=== PATIENT | female | born 1980 | race Hispanic/Latino ===

== ENCOUNTER 2025-04-12 02:40 | Emergency (ER) | payer OTHER, SELFPAY ==
[2025-04-12 02:42] VITALS: BP 144/90
[2025-04-12] MEDS: TORADOL 30 MG IM (04:27)
[2025-04-12 04:32] VITALS: BP 149/98
--- NOTE | 2025-04-12 04:43 | ED.GENMED ---
History of Present Illness
General
Chief Complaint: Back Pain
Source: patient
Exam Limitations: none
Time Seen by Provider: 04/12/25 03:18
History of Present Illness
History of Present Illness:
Note:
CHIEF COMPLAINT(S)
Lower back pain.
HISTORY OF PRESENT ILLNESS
The patient is a 45-year-old female with a history of herniated discs since 2019, presenting with lower back pain. The patient reports that the pain is primarily located in the center of the lower back and occasionally radiates around the hip area.
In the past, the patient has experienced episodes of shooting pain from the back of the head downwards, but this is not currently present. The pain is described as episodic, often aggravated by everyday activities such as picking up her pets. When
she has these acute episodes, she has to ambulate with a walker. The patient denies any recent falls or new injuries. She reports using naproxen and lidocaine patches for pain management. But this has not been working recently. She notes numbness
and tingling occasionally gabapentin has not been working. The patient works with the [employer] system and has not been recommended for surgery, with the primary management being pain control through gabapentin, which she has stopped
using due to the necessity for daily intake to be effective. There are no associated symptoms of fever, urinary incontinence, or new neurological symptoms reported. She denies any fevers or chills. She denies any hematuria or dysuria.
SOCIAL HISTORY
The patient mentioned picking up her pets, which may occasionally aggravate her back pain.
MEDICATIONS
The patient uses naproxen and lidocaine patches for pain management. Previous use of gabapentin was noted but discontinued.
PHYSICAL EXAM
General: Alert, no acute distress.
Skin: Warm, dry.
Head: Normocephalic, atraumatic.
Neck: Supple, trachea midline.
Eye Ears, nose, mouth and throat: Oral mucosa moist.
Cardiovascular: Normal peripheral perfusion, No edema.
Respiratory: Respirations are non-labored.
Gastrointestinal: Abdomen nondistended
Back: Normal range of motion but tenderness noted in the paralumbar region on palpation, particularly the left side, no midline spinal tenderness
Musculoskeletal: Normal ROM, normal strength noted 5/5 strength in bilateral lower extremities
Neurological: Alert and oriented to person, place, time, and situation, No focal neurological deficit observed.
Psychiatric: Cooperative, appropriate mood & affect.
PROBLEM LIST
Acute:
- Lower back pain with episodic flare-ups
Chronic:
- Herniated discs
PLAN
1. Administer toradol (ketorolac) injection for acute pain relief.
2. Prescribe a short course of prednisone, 40 mg once daily for 5 days, advising against the concurrent use of naproxen during this period.
3. Evaluate the need for further diagnostic imaging or follow-up if symptoms persist or worsen, MRI is not available in the emergency setting.
DIFFERENTIAL DIAGNOSIS
The Differential Diagnosis includes, in no particular order and is not limited to:
1. Lumbar herniated disc
2. Lumbar strain or sprain
3. Sciatica
4. Spinal stenosis
5. Sacroiliac joint dysfunction
6. Facet joint syndrome
7. Ankylosing spondylitis
8. Degenerative disc disease
9. Osteoarthritis of the spine
10. Piriformis syndrome
CHART REVIEW
Reviewed [facility], no prior ER physician documentation to review no hospital discharge summary to review
No external medical summary report to review
MDM/DISPOSITION
The patient is a 45-year-old female with a history of herniated discs since 2019, presenting with lower back pain. The patient reports that the pain is primarily located in the center of the lower back and occasionally radiates around the hip area.
She is able to recognize this pain is an exacerbation of her sciatica/herniated disc. Patient has no new neurologic symptoms today, she has no urinary or fecal incontinence, no red flag symptoms, no genital paresthesias, no fevers or chills. On
physical exam, she is tender to palpation paralumbar region however she has a normal gait and 5 out of 5 strength. Suspect exacerbation of her underlying herniated disc disease, did discuss limited utility of imaging. Doubt kidney stones, doubt
intra-abdominal pathology. Patient requesting IM dose of Toradol. Patient symptoms greatly improved able to walk more comfortably. Will send course of prednisone to pharmacy. Discussed follow-up with Ortho as an outpatient. Discussed tricked
return precautions. Patient stable for discharge.
Review of Systems
Review of Systems
All Other Systems: ROS reviewed and negative except as documented in HPI and ROS
Phy Exam
Physical Exam
Physical Exam:
see hpi
Course
Orders/Labs/Results
Orders:
Orders
04/12/25 04:01
Ketorolac [Toradol] 30 mg IM NOW STA
Vital Signs
Initial and Last Documented VS:
Initial Vital Signs
Temp Pulse Resp BP Pulse Ox
97.3 F 78 18 144/90 100
04/12/25 02:42 04/12/25 02:42 04/12/25 02:42 04/12/25 02:42 04/12/25 02:42
Last Documented Vital Signs
Temp Pulse Resp BP Pulse Ox
97.3 F 68 14 149/98 99
04/12/25 02:42 04/12/25 04:32 04/12/25 04:32 04/12/25 04:32 04/12/25 04:44
*Pulse Oximetry
SaO2: 99
Oxygen Mode of Delivery: Room air
Patient hypoxic: no
*Critical Care Note
Total Time (30-74mins, 75-104mins- exclusive of procedures): Not Applicable
ED Attending Note
-
Portions of this chart may have been created with voice recognition software.� Occasional wrong word or��sound alike� substitutions may have occurred due to the inherent limitations of voice recognition software.
Discharge Plan
Departure
Patient Disposition: Home (Routine Discharge)
Date of Disposition: 04/12/25
Time of Disposition: 04:42
Patient with high blood pressure during this ER visit?: Yes
Condition: Fair
Discharge Problem:
Lumbar herniated disc, Sciatica
Instructions: Low Back Pain (DC), BLOOD PRESSURE
Prescriptions:
New
prednisone 20 mg tablet
40 mg PO DAILY 5 Days Qty: 10 0RF
lidocaine 5 % adhesive patch,medicated
1 patch topical DAILY Qty: 15 0RF
No Action
Medical Marijuana
1 dose inhalation DAILY PRN (Reason: back pain)
Referrals:
Larisa Guerin MD [Family Provider, Internal Medicine]
Felix Martinez MD [Active, Orthopedics] - Call in 1-3 days for appt
Activity Restrictions/Additional Instructions:
Prescription strength lidocaine patches have been sent to your pharmacy. You can apply 1 patch over the affected area once daily. Please remove after 12 hours. Prednisone has been sent to your pharmacy. You can take 40 mg once daily for 5 days.
Please contact your primary physician and see if it would be possible to be evaluated by one of her orthopedist. I did provide you with a referral.
PLEASE RETURN TO THE ER SHOULD YOU DEVELOP URINARY OR FECAL INCONTINENCE, NUMBNESS OR TINGLING IN THE GENITAL REGION, FEVERS OR CHILLS, INABILITY TO AMBULATE, CHEST PAIN, SHORTNESS OF BREATH, FAINTING SPELLS, OR ANY OTHER SIGNS OR SYMPTOMS WORRISOME
TO YOU.
Interventions
Interventions:
*Risk Screen - Suicide Last Done: 04/12/25 02:42
*General Assessment Last Done: 04/12/25 03:25
*Neglect/Abuse Screening Last Done: 04/12/25 02:42
*ED- Fall Risk Assessment Last Done: 04/12/25 03:25
*ED COVID-19 Vaccine History Last Done: 04/12/25 03:25
*Nursing Disposition Last Done: 04/12/25 04:49
ED-Musculoskeletal Assessment Last Done: 04/12/25 03:25
Discharge Date and Time
Discharge Date/Time: 04/12/25 04:45
Print Language: PAKISTANI
== END 2025-04-12 04:45 | disposition home or self-care (01) ==
LOC: EMR 02:40
PROVIDERS: EMERGENCY PHYSICIAN Emergency Medicine; FAMILY PHYSICIAN Internal Medicine
DX: M51.26 Other intervertebral disc displacement, lumbar region (principal); M51.372 Other intervertebral disc degeneration, lumbosacral region with discogenic back pain and lower extremity pain
CPT/HCPCS: 96372; 99284